=== PATIENT | female | born 1935 | race Caucasian/White ===

== ENCOUNTER 2020-03-22 11:03 | Emergency (ER) | payer MEDICARE, OTHER ==
[~2020-03-22] VITALS: Ht 165.1 cm; Wt 81.6 kg
--- NOTE | 2020-03-22 11:10 | NUR ---
ER BED 1 PT BIBRA S/P GLF AT HOME. PT COMPLAINING OF R SHOULDER PAIN 5/10. ALSO NOTED WITH LLE SKIN TEARS. VS CHECKED. AWAITING MD BAUER.
[2020-03-22] MEDS ORDERED: LABETALOL HCL IV 100MG VIAL IV ONE (11:30)
--- NOTE | 2020-03-22 11:30 | NUR ---
PT SEEN BY
--- NOTE | 2020-03-22 11:42 | NUR ---
NOTIFIED DR. CAMACHO REGARDING PTS BP OF 132/80. PER MD DO NOT ADMINISTER LABETALOL IV.
[2020-03-22] MEDS ORDERED: ACETAMINOPHEN ES 500 MG TABLET ONE (11:46)
--- NOTE | 2020-03-22 11:49 | NUR ---
ADMINISTERED TYLENOL 500 2TABS FOR R SHOULDER PAIN. WOUND CARE BEING DONE AT THE MOMENT TO LLE SKIN TEAR.
[2020-03-22] MEDS ORDERED: ACETAMINOPHEN ES 500 MG TABLET PO ONE (12:00)
--- NOTE | 2020-03-22 12:13 | NUR ---
PT OUT FOR CT SCAN.
--- NOTE | 2020-03-22 12:24 | NUR ---
PT BACK FROM CT
[2020-03-22 13:39] VITALS: BP 132/80
--- NOTE | 2020-03-22 13:40 | NUR ---
Patient discharged to home in stable condition. Written and verbal after care instructions given. Patient verbalizes understanding of instruction.
== END 2020-03-22 13:41 | disposition home or self-care (01) ==
LOC: ER 11:07
DX: S81.812A Laceration without foreign body, left lower leg, initial encounter (principal); S40.011A Contusion of right shoulder, initial encounter; R51.9 Headache, unspecified; I10 Essential (primary) hypertension; W19.XXXA Unspecified fall, initial encounter; Y93.89 Activity, other specified; Y92.89 Other specified places as the place of occurrence of the external cause; Y99.8 Other external cause status
CPT/HCPCS: 70450; 71045; 73030; 99284; A6403